=== PATIENT | female | born 1980 | race Caucasian/White ===

== ENCOUNTER 2017-08-19 12:24 | Outpatient (CLI) | payer BC ==
--- NOTE | 2017-08-19 13:08 | RAD ---
RADIOGRAPH CHEST 2 VIEWS: HISTORY: A 36-year-old female with dyspnea and chest pain. FINDINGS: There is no air space density, pulmonary edema, pleural effusion, pneumothorax, or cardiomegaly. IMPRESSION: No acute cardiopulmonary findings. jn [] POS: [facility]
== END 2017-08-19 12:25 | disposition home or self-care (01) ==
LOC: RAD 12:24
PROVIDERS: ATTEND Student in an Organized Health Care Education/Training Program
DX: R07.9 Chest pain, unspecified (principal); R06.02 Shortness of breath
CPT/HCPCS: 71020

== ENCOUNTER 2017-10-01 11:50 | Day surgery (SDC) | payer BC ==
[2017-10-01 12:45] VITALS: BMI 33.2
[2017-10-01 13:06] VITALS: BP 139/58; TEMP 97.4
[2017-10-01] MEDS: Lactated Ringer's 1,000 ML IV SCH ×2 (13:40→14:21)
== END 2017-10-01 15:55 | disposition home or self-care (01) ==
LOC: L&D/OP 11:50
PROVIDERS: ATTEND Student in an Organized Health Care Education/Training Program
DX: O42.92 Full-term premature rupture of membranes, unspecified as to length of time between rupture and onset of labor (principal); O09.513 Supervision of elderly primigravida, third trimester; O24.415 Gestational diabetes mellitus in pregnancy, controlled by oral hypoglycemic drugs; O99.283 Endocrine, nutritional and metabolic diseases complicating pregnancy, third trimester; E03.9 Hypothyroidism, unspecified; Z91.040 Latex allergy status; Z79.899 Other long term (current) drug therapy

== ENCOUNTER 2017-10-05 01:18 | Inpatient (IN) | payer BC ==
[2017-10-05 01:49] VITALS: BMI 33.2
[2017-10-05] MEDS ORDERED: Lidocaine 1% (PF) 30 ML VIAL SC PRN (02:05)
[2017-10-05] MEDS ORDERED: LR / Pitocin 40 units/1000 ml 1,000 ML IV PRN (02:05)
[2017-10-05] MEDS ORDERED: Ondansetron HCl/PF 4 MG/2 ML Vial IVP PRN ×5 (02:05→16:51)
[2017-10-05] MEDS ORDERED: Ibuprofen 800 MG TAB PO PRN (02:05)
[2017-10-05] MEDS ORDERED: HYDROcodone/Acetaminophen 5/325 mg Tablet PO PRN ×3 (02:05→16:51)
[2017-10-05] MEDS ORDERED: Lactated Ringer's 1,000 ML IV SCH (02:15)
[2017-10-05] MEDS: Lactated Ringer's 1,000 ML IV SCH ×3 (02:33→10:50)
[2017-10-05 02:36] LABS: Hemoglobin 11.3 g/dL (12.0-16.0); Mean Corpuscular HGB CONC 33.9 g/dL (32.0-36.0); Mean Corpuscular Hemoglobin 28.5 pg (27.0-31.0); Mean Corpuscular Volume 84.1 fl (81.0-99.0); Mean Platelet Volume 8.8 fL (7.4-10.4); Platelet Count 225 thou/uL (130-400); RBC Distribution Width 13.4 % (11.5-14.5); Red Blood Cell (RBC) Count 3.96 mill/uL (4.20-5.40); White Blood Cell (WBC) Count 11.7 thou/uL (4.8-10.8)
[2017-10-05] MEDS ORDERED: Naloxone HCl 0.4 mg/ml Vial IVP PRN ×4 (03:23→12:35)
[2017-10-05] MEDS ORDERED: Eucerin (Mineral Oil/Petrolatum,White) 30 gm Jar TOP PRN ×2 (03:23→12:35)
[2017-10-05] MEDS ORDERED: Lactated Ringer's 500 ML IV PRN (03:23)
[2017-10-05] MEDS ORDERED: Promethazine HCl 25 MG/ML VIAL IM PRN ×3 (03:23→16:51)
[2017-10-05] MEDS ORDERED: ePHEDrine/0.9% NaCl/PF SYRINGE 50 mg/10 ml SLOW IVP PRN (03:23)
[2017-10-05] MEDS ORDERED: Acetaminophen 325 MG TAB PO PRN (03:23)
[2017-10-05] MEDS ORDERED: diphenhydrAMINE 50 MG/ML VIAL IVP PRN ×2 (03:23→12:35)
[2017-10-05] MEDS ORDERED: Fentanyl 4mcg/Marcaine 0.1% Cassette 100 ML EPIDURAL SCH (03:30)
[2017-10-05] MEDS ORDERED: Communication Order-Pharmacy FS SCH ×2 (03:30→12:45)
[2017-10-05 03:37] LABS: HBSAg Index 0.24 S/CO (0-0.99); Hep B Surf Ag Non-Reactive S/CO (NonReactive)
[2017-10-05] MEDS: Bupivacaine 0.5% 20 ML, Fentanyl 400 MCG in Sodium Chloride 0.9% 72 ML EPIDURAL SCH ×2 (03:55→11:01)
[2017-10-05 04:46] LABS: Syphilis Antibody Nonreactive (Nonreactive); Syphilis Antibody Index 0.04 S/CO (<1.00 Non-Reactive)
[2017-10-05] MEDS ORDERED: LR 500 ML/Oxytocin 10 units 500 ML ONE (05:33)
[2017-10-05] MEDS ORDERED: LR 500 ML/Oxytocin 10 units 500 ML IVPB SCH (05:45)
--- NOTE | 2017-10-05 08:42 | PDOC.LDHP ---
Labor and Delivery H&P Chief complaint: loss of fluid ( since 0045, clear) HPI: 36yo at 37w0d with LOF copious clear at 0045, some painful contractions, no VB. Good FM Current gestational age (weeks): 37 Due date: 10/26/17 Dating criteria: last menstrual period Grav: 1 Para: 0 OB History Details: AMA s/p nl NT NIPT and MSAFP Current complications: gestational diabetes ( controlled on glyburide and metformin) Abnormal US findings: Yes (polyhydramnios, EFW > 99%ile) Past Medical History: hypothyroid, depression Current medications: pre- vitamins, other (levothyroxine 50mcg, zoloft 50mg daily, metformin 1000 bid) Previous surgical history: none Allergies/Adverse Reactions: Allergies Allergy/AdvReac Type Severity Reaction Status Date / Time latex Allergy Intermediate Hives Verified 10/01/17 12:42 Social history: none - Physical Exam Vital signs reviewed and normal: yes General: NAD Heart: RRR Lungs: CTAB Abdomen: gravid Extremeties: no edema FHT: category 2, late decelerations [place] contractions every: q3min - Vaginal Exam cm dilated: 7 Effacement: 75% Station: -1 (large cervical fibroid in front of babys head) - OB Labs Blood type: B RH: positive Antibody Screen: negative HIV: negative RPR: negative HEPSAg: negative 1 hour GCT: positive 3 hour GTT: positive GBS: negative Rubella: immune - Assessment L&D Assessment: term rupture in membranes - Plan Plan: admit to L&D, labor augmentation if indicated, informed consent obtained, anesthesia consult for pain management -: IUPC/FSE placed, pitocin turned off for recurrent lates at 0610, now with intermittent lates, resuscitate, check BG, if cat 1 x 30min restart pitocin, if Cat 2 and changing cervix will cont to labor pt, if not changing cervix and Cat 2 will be for PCS. Also disc fibroid may not be able to go behind baby's head and in that case would be considered outlet obstruction and would be for PCS. Will cont to eval.
[2017-10-05] MEDS ORDERED: CEFAZOLIN/Water 2 GM/20 ML SYRINGE ONE (12:10)
[2017-10-05] MEDS ORDERED: Bicitra 30 ML UDCUP ONE (12:10)
[2017-10-05] MEDS ORDERED: CEFAZOLIN/Water 2 GM/20 ML SYRINGE SLOW IVP SCH (12:15)
[2017-10-05] MEDS ORDERED: Bicitra 30 ML UDCUP PO SCH (12:15)
--- NOTE | 2017-10-05 12:16 | PDOC.LDPN ---
Labor & Delivery Progress Note - Subjective Subjective: comfortable - Objective Vital signs reviewed and normal: yes General: NAD Uterine fundus: non tender Dilation: 7 Effacement: 75% Station: -1 FHT: category 2, variable decelerations, late decelerations, absent or minimal variables [place] contractions every: q3-5min -: NRFHT, pitocin turned off at 4mu/min due to deep late decelerations, cont to have intermittent lates and variables. Cervical fibroid is now prolapsing down further and obstructing canal. Dispo for PCS for NRFHT and outlet obstruction. R/B disc with pt, pt understands and wishes to proceed.
[2017-10-05] MEDS ORDERED: Ketorolac Tromethamine 30 MG/ML VIAL ONE ×2 (12:26→16:18)
[2017-10-05] MEDS ORDERED: Oxytocin 10 UNITS/ML VIAL ONE ×2 (12:26→13:00)
[2017-10-05] MEDS ORDERED: Dexamethasone 4 mg/ml Vial ONE (12:26)
[2017-10-05] MEDS ORDERED: Morphine PF 1 MG/ML SYR ONE (12:26)
[2017-10-05] MEDS ORDERED: Ondansetron HCl/PF 4 MG/2 ML Vial ONE ×2 (12:26→16:18)
[2017-10-05] MEDS ORDERED: PHENYLEPHRINE-NS 100 MCG/ML 10 ML SYRINGE ONE ×2 (12:26→16:18)
[2017-10-05] MEDS ORDERED: HYDROmorphone 2 MG/ML VIAL SLOW IVP PRN (12:34)
[2017-10-05] MEDS ORDERED: Promethazine HCl 25 MG SUPP PR PRN (12:35)
[2017-10-05] MEDS ORDERED: Naloxone HCl 0.4 mg/ml Vial IV PRN (12:35)
[2017-10-05] MEDS ORDERED: Ketorolac Tromethamine 30 MG/ML VIAL IVP SCH (12:45)
--- NOTE | 2017-10-05 12:45 | PDOC.OPDEL ---
OB Operative/Delivery Note Delivery Dr/Surgeon: Tri Assist: Shyam Pre-Delivery Diagnosis: non-reassuring tracing, other (outlet obstruction with cervical fibroid) Procedure/Post Delivery Dx: primary low transverse CS Weeks gestation: 37 Anesthesia: epidural - Findings A Sex: female - Additional Findings/Plan Placenta delivered: spontaneous findings: low transverse hysterotomy without extension, normal tubes, normal ovaries Post delivery plan: routine recovery
[2017-10-05] MEDS ORDERED: Meperidine HCl/PF 25 MG/ML VIAL ONE ×2 (14:16→14:51)
[2017-10-05] MEDS: Meperidine HCl/PF 25 MG/ML VIAL SLOW IVP PRN ×2 (14:17→14:52)
--- NOTE | 2017-10-05 15:42 | ADD-OP ---
ADDENDUM: DATE OF SERVICE: 10/05/2017 I was present and scrubbed to assist the uncomplicated primary with Dr. Pina Bartlett. Please see her full note for details. MTDD
[2017-10-05] MEDS ORDERED: Morphine 10 MG/ML VIAL ONE (15:48)
[2017-10-05] MEDS ORDERED: Morphine 2 MG/ML SYRINGE ONE ×2 (15:57→15:58)
[2017-10-05] MEDS ORDERED: Dexamethasone 20 MG/5 ML VIAL ONE (16:18)
[2017-10-05] MEDS ORDERED: Adacel (T-DAP) 0.5 ML VIAL IM ONE (16:51)
[2017-10-05] MEDS ORDERED: diphenhydrAMINE 25 MG CAP PO PRN (16:51)
[2017-10-05] MEDS ORDERED: Bisacodyl 10 MG SUPP PR PRN (16:51)
[2017-10-05] MEDS: Ibuprofen 800 MG TAB PO SCH ×3 (17:20→20:37)
[2017-10-05] MEDS: Ferrous Sulfate 325 MG TAB PO SCH (20:36)
[2017-10-05] MEDS: Docusate Calcium (SURFAK) 240 MG CAP PO SCH (20:36)
[2017-10-05] MEDS: Ketorolac Tromethamine 30 MG/ML VIAL IVP PRN (20:43)
[2017-10-06] MEDS ORDERED: HYDROcodone/Acetaminophen 5/325 mg Tablet PO PRN (00:45)
[2017-10-06] MEDS: Lanolin Ointment 7 GM TUBE TOP PRN ×2 (01:21→08:58)
[2017-10-06] MEDS: Lactated Ringer's 1,000 ML IV SCH (01:21)
[2017-10-06] MEDS ORDERED: Levothyroxine 150 MCG TAB PO SCH (06:00)
[2017-10-06 06:09] LABS: Hemoglobin 7.8 g/dL (12.0-16.0); Mean Corpuscular HGB CONC 33.1 g/dL (32.0-36.0); Mean Corpuscular Hemoglobin 28.3 pg (27.0-31.0); Mean Corpuscular Volume 85.5 fl (81.0-99.0); Mean Platelet Volume 8.3 fL (7.4-10.4); Platelet Count 192 thou/uL (130-400); RBC Distribution Width 13.5 % (11.5-14.5); Red Blood Cell (RBC) Count 2.76 mill/uL (4.20-5.40); White Blood Cell (WBC) Count 15.8 thou/uL (4.8-10.8)
[2017-10-06] MEDS: Ketorolac Tromethamine 30 MG/ML VIAL IVP PRN (06:23)
--- NOTE | 2017-10-06 06:30 | PDOC.PP ---
Post Progress Note Post Day #: POD #! Subjective: Resting comfortably. No c/o. PO intake tolerated: yes Flatus: no Ambulation: no Vital Signs (12 hours) Temp Pulse Resp BP 10/06/17 04:37 98.0 F 95 16 100/65 10/05/17 23:53 97.4 F L 94 16 10/05/17 19:45 97.4 F L 94 16 100/49 L Weight Weight 79.832 kg - Physical Examination Respiratory: non-labored breathing Abdominal: no distention Extremities: negative homans (B) Skin: CS incision dry & intact Result Diagrams: 10/06/17 05:55 Additional Labs: Post Labs Blood Type B POSITIVE 10/05/17 02:25 Hep Bs Antigen Non-Reactive S/CO (NonReactive) 10/05/17 02:25 - Assessment/Plan Stable, doing well s/p 1* C/s. Advance diet. D/C arora. Ambulate with assistance.
[2017-10-06] MEDS: Levothyroxine Sodium 50 MCG TAB PO SCH (07:03)
[2017-10-06] MEDS: Prenatal Vitamin 1 TAB PO SCH (08:55)
[2017-10-06] MEDS: Docusate Calcium (SURFAK) 240 MG CAP PO SCH ×2 (08:55→20:47)
[2017-10-06] MEDS: Simethicone Chewable 80 MG TAB PO PRN ×3 (08:56→20:46)
[2017-10-06] MEDS: Ferrous Sulfate 325 MG TAB PO SCH ×2 (08:56→20:47)
[2017-10-06] MEDS: HYDROcodone/Acetaminophen 5/325 mg Tablet PO PRN ×2 (11:45→20:46)
[2017-10-06] MEDS: Ibuprofen 800 MG TAB PO SCH ×2 (13:39→20:46)
[2017-10-07] MEDS: HYDROcodone/Acetaminophen 5/325 mg Tablet PO PRN ×3 (04:32→22:01)
[2017-10-07] MEDS: Ibuprofen 800 MG TAB PO SCH ×3 (06:16→21:31)
[2017-10-07] MEDS: Levothyroxine Sodium 50 MCG TAB PO SCH (06:16)
[2017-10-07] MEDS: Simethicone Chewable 80 MG TAB PO PRN ×2 (06:17→17:06)
[2017-10-07 07:55] LABS: Hemoglobin 7.1 g/dL (12.0-16.0); Mean Corpuscular HGB CONC 34.6 g/dL (32.0-36.0); Mean Corpuscular Hemoglobin 29.9 pg (27.0-31.0); Mean Corpuscular Volume 86.4 fl (81.0-99.0); Mean Platelet Volume 8.2 fL (7.4-10.4); Platelet Count 245 thou/uL (130-400); RBC Distribution Width 13.6 % (11.5-14.5); Red Blood Cell (RBC) Count 2.36 mill/uL (4.20-5.40); White Blood Cell (WBC) Count 13.2 thou/uL (4.8-10.8)
--- NOTE | 2017-10-07 08:03 | PRG ---
DATE OF SERVICE: 10/07/2017 PRIMARY OB: Dr. Pina Bartlett HISTORY OF PRESENT ILLNESS: The patient is a 36-year-old, now postoperative day #2, status post a pr imary for nonreassuring heart tones. She reports today that she is having good pain control. She is tolerating p.o., voiding on her own. She denies any significant chest pain, shortne ss of breath. She has experienced 2 episodes of some mild lightheadedness yesterday that she said re solved with her iron medication. PHYSICAL EXAMINATION: VITAL SIGNS: Blood pressure is 103/59, heart rate of 104, temperature 97.8, respiratory rate of 18. GENERAL: She appears to be in no acute distress. She is alert and oriented, and cooperative and ple asant to interact with. HEENT: Normocephalic, atraumatic. ABDOMEN: Fundus is firm, appropriately tender. Incision is clean, dry, and intact with dorothy. EXTREMITIES: She has significant bilateral swelling in her lower extremities and symmetrical. Her post-delivery hemoglobin is 7.8, hematocrit 23.6. ASSESSMENT AND PLAN: The patient is a 36-year-old postop day 2 status post a primary for n onreassuring heart tones with some intermittent lightheadedness and dizziness. The patient has had a significant drop from 11.3 to 7.8 in her hemoglobin. I have repeated it this morning and have given the patient elder counselor if she experiences significant dizziness, lightheadedness, chest pain, nidhi rtness of breath to let us know. Anticipate patient discharge tomorrow or the next day.
[2017-10-07] MEDS: Prenatal Vitamin 1 TAB PO SCH (08:30)
[2017-10-07] MEDS: Docusate Calcium (SURFAK) 240 MG CAP PO SCH ×2 (08:30→21:31)
[2017-10-07] MEDS: Ferrous Sulfate 325 MG TAB PO SCH ×2 (08:30→21:31)
--- NOTE | 2017-10-07 09:52 | OP ---
DATE OF OPERATION: 10/05/2017 PREOPERATIVE DIAGNOSES: 1. Intrauterine at 37 weeks and 0 days. 2. Spontaneous onset of labor. 3. Outlet obstruction due to cervical fibroid. 4. Nonreassuring heart tones. POSTOPERATIVE DIAGNOSES: 1. Intrauterine at 37 weeks and 0 days. 2. Spontaneous onset of labor. 3. Outlet obstruction due to cervical fibroid. 4. Nonreassuring heart tones. 5. Uterine fibroids. ANESTHESIA: Epidural. ATTENDING SURGEON: Pina Bartlett M.D. SIDE FRAMER: Lotus Howe M.D. ESTIMATED BLOOD LOSS: 700 mL. INTRAVENOUS FLUIDS: One liter crystalloid. URINE OUTPUT: 100 mL of clear urine. COMPLICATIONS: None. PATHOLOGY: None. DRAINS: Echavarria catheter. FINDINGS: A female infant in cephalic presentation, clear amniotic fluid, Apgars of 3, 5 and 7, weig juan m 7 pounds 15 ounces. Uterus with multiple small fibroids, largest was a subserosal anteriorly ap proximately 3 cm. There was a large cervical fibroid present that was swollen and edematous prolapsi ng into the vaginal canal obstructing labor and this measured approximately 7-8 cm. Fallopian tubes and ovaries were normal bilaterally. OPERATIVE TECHNIQUE: The patient was taken to the operating room where epidural anesthesia was found to be adequate. The patient was prepped and draped in a sterile fashion in the dorsal supine positi on with a leftward tilt. After ensuring adequacy of anesthesia, a Pfannenstiel skin incision was mad e and carried down to the underlying subcutaneous tissue with the knife. The fascia was nicked in th e midline with the knife and carried laterally with the Mayos. The superior aspect of the fascia was tented with 2 Kochers and dissected off the rectus bluntly. Perforators were cauterized for hemosta sis, inferior aspect of the fascia was tented with 2 Kochers and dissected off the rectus down to the pubic symphysis. Rectus were bluntly divided in the midline. Peritoneum was bluntly entered into a nd manually retracted. The Mason O retractor was placed and bladder flap was created with the Sundar abad. The lower uterine segment was incised in the transverse fashion and extended with the Cortez m aneuver. The infant's head was brought to the hysterotomy and delivered atraumatically followed by t body. Infant delayed cord clamping was performed. The 's cord was clamped and charleen d to awaiting sangeeta team. Cord blood was obtained and placenta was allowed to spontaneously deliver wi th fundal massage. The uterus was then unable to be exteriorized and was cleared of all clots and de bris inside the abdomen. The hysterotomy was repaired with a #1 Monocryl in a running locking fashio n. Hemostasis was noted. Several bladder pillars were cauterized and one had continued oozing there fore a single [id number] was placed around it of 2-0 chromic and hemostasis was noted to be exce llent. Irrigation of the pelvis was performed and again noting hemostasis. The peritoneum was then placed over the uterus and the rectus muscles were examined and noted to be hemostatic. The fascia w as reapproximated with 0 PDS with excellent reapproximation. The subcutaneous tissue was irrigated a nd cauterized of any bleeders and reapproximated with a 2-0 plain gut in a running fashion and the sk in was closed with 4-0 Monocryl in a subcuticular fashion and Dermabond was applied as well as a pres sure dressing. The patient tolerated procedure well. Sponge, lap, and needle counts were correct x2 . The patient was taken to recovery in stable condition.
--- NOTE | 2017-10-07 11:58 | PDOC.EVN ---
Event Note - Event Note Event Note: body recall instructor OBGYN note: I just followed up on a repeat HCT check from the last covering OBGYN. The Hct is 20.4 down from 23. No sxs of anemia. I will recheck at 0200 tomorrow AM
[2017-10-07] MEDS: metFORMIN 500 MG TAB PO SCH (17:06)
[2017-10-08] MEDS: Ibuprofen 800 MG TAB PO SCH ×2 (05:21→14:52)
[2017-10-08] MEDS: Levothyroxine Sodium 50 MCG TAB PO SCH (05:21)
[2017-10-08 05:28] LABS: Hemoglobin 7.3 g/dL (12.0-16.0)
--- NOTE | 2017-10-08 06:04 | PDOC.EVN ---
Event Note - Event Note Event Note: DISCHARGE NOTE Admit date: 10/05/17 Discharge Date: 10/08/17 Procedure: Primary CS due to NRFHTS and lower uterine fibroid/cervical. CS by Dr Bartlett. Patient's postop HCT dropped to 23 anf then stabilized at 21.8 on day of discharge. She was asymptomatic and non-tachycardic. Abdomen was soft and NT. Incision C/D/I. Baby to have repeat bili level checked on day of discharge ( under bili lights). Incision sutured closed. Patient to F/U with Dr bartlett in 2 weeks. Lydia cabellon.
--- NOTE | 2017-10-08 06:10 | PDOC.PP ---
Post Progress Note Post Day #: 3 Subjective: Doing well, no SOB, ambulating and honey po. PO intake tolerated: yes Flatus: yes Vital Signs (12 hours) Temp Pulse Resp BP 10/07/17 19:50 98.1 F 83 16 96/56 L Weight Weight 176 lb - Physical Examination General: NAD Cardiovascular: no m/r/g Respiratory: clear to auscultation bilaterally Abdominal: + bowel sounds Extremities: negative homans (B) Skin: CS incision dry & intact (dorothy in place) Neurological: no gross focal deficits Result Diagrams: 10/08/17 04:50 Additional Labs: Post Labs Blood Type B POSITIVE 10/05/17 02:25 Hep Bs Antigen Non-Reactive S/CO (NonReactive) 10/05/17 02:25 (1) Delivered by section Code(s): O82 - ENCOUNTER FOR DELIVERY WITHOUT INDICATION Status: Acute - Assessment/Plan Patient seen and examined. Dorothy in polace. HCT stable at 21.8 this AM. baby to have bili check this AM. OK for discharge today and B&B if needed for baby stay. Motrin prn.
[2017-10-08 07:43] VITALS: BP 109/56; TEMP 98.2
[2017-10-08] MEDS: Prenatal Vitamin 1 TAB PO SCH (08:24)
[2017-10-08] MEDS: Docusate Calcium (SURFAK) 240 MG CAP PO SCH (08:26)
[2017-10-08] MEDS: metFORMIN 500 MG TAB PO SCH (08:26)
[2017-10-08] MEDS: Ferrous Sulfate 325 MG TAB PO SCH (08:27)
[2017-10-08] MEDS: HYDROcodone/Acetaminophen 5/325 mg Tablet PO PRN (14:52)
== END 2017-10-08 15:35 | disposition home or self-care (01) | DRG 766 ==
LOC: L&D/OP 01:18 → L&D 02:21 → 3SW 17:23
PROVIDERS: ADMIT Student in an Organized Health Care Education/Training Program; ATTEND Student in an Organized Health Care Education/Training Program
PROC: 10D00Z1 Extraction of Products of Conception, Low, Open Approach (ICD-10-PCS; principal; 2017-10-05)
DX: O65.3 Obstructed labor due to pelvic outlet and mid-cavity contraction (principal); E66.9 Obesity, unspecified; D25.9 Leiomyoma of uterus, unspecified; Z37.0 Single live birth; O65.5 Obstructed labor due to abnormality of maternal pelvic organs; Z3A.37 37 weeks gestation of pregnancy; O76 Abnormality in fetal heart rate and rhythm complicating labor and delivery; O99.283 Endocrine, nutritional and metabolic diseases complicating pregnancy, third trimester; E03.9 Hypothyroidism, unspecified; O99.344 Other mental disorders complicating childbirth
CPT/HCPCS: 36415; 36416; 51702; 85014; 85018; 85027; 86780; 86850; 86900; 86901; 87340; 90715; 99283; J1100; J1200; J1885; J2175; J2270; J2274; J2405; J2590; J3010; J3490; J7050; J7120

== ENCOUNTER 2018-04-28 09:14 | Outpatient (CLI) | payer BC ==
--- NOTE | 2018-04-28 12:09 | MRI ---
MRI RIGHT WRIST WITHOUT CONTRAST: Date: 04/28/18 INDICATION: History of right wrist pain for many months. Concern for possible scapholunate injury. No known injur y reported. TECHNIQUE: Multiplanar, multisequence MR images were obtained of the right wrist without contrast. No comparisons are available. FINDINGS: The scapholunate and lunotriquetral ligaments are intact. The visualized extrinsic ligaments appear i ntact. Carpal alignment appears within normal limits. No definite acute osseous abnormality is eviden t. TFC intact. Radioulnar ligaments appear intact. ECU appears intact. FCU and FCR tendons appear int act. Carpal tunnel contents appear within normal limits. Remaining extensor tendons appear within nor mal limits. Small amount of fluid seen within the tendon sheaths of the ECRB and ECRL tendons. This i s seen at the level of the proximal carpal row. IMPRESSION: 1. Scapholunate ligament appears intact. 2. Mild fluid in the tendon sheath of second dorsal compartment may reflect mild tenosynovitis. POS: [facility]
== END 2018-04-28 09:15 | disposition home or self-care (01) ==
LOC: SCSMRI 09:14
PROVIDERS: ATTEND Orthopaedic Surgery Hand Surgery
DX: S63.8X1A Sprain of other part of right wrist and hand, initial encounter (principal); M25.331 Other instability, right wrist

== ENCOUNTER 2018-08-02 05:41 | Day surgery (SDC) | payer BC ==
[2018-08-01 15:09] VITALS: BMI 33.2
[2018-08-02] MEDS ORDERED: Fentanyl 100 MCG/2 ML VIAL ONE ×2 (06:25)
[2018-08-02] MEDS ORDERED: CEFAZOLIN 2 GM/50 ML BAG ONE (06:27)
[2018-08-02 06:30] LABS: #Basophils 0.1 thou/uL (0.0-0.2); #Eosinphils 0.4 thou/uL (0.0-0.7); #Monocytes 0.6 thou/uL (0.11-0.59); #Neutrophils 4.1 thou/uL (1.40-6.50); %Eosinophils 4.8 % (0.0-10.0); %Lymphocytes 43.5 % (21.0-51.0); %Monocytes 6.4 % (0.0-10.0); %Neutrophils 44.3 % (42.0-75.0); Hemoglobin 13.3 g/dL (12.0-16.0); Mean Corpuscular HGB CONC 33.4 g/dL (32.0-36.0); Mean Corpuscular Hemoglobin 27.7 pg (27.0-31.0); Mean Platelet Volume 7.1 fL (7.4-10.4); Platelet Count 290 thou/uL (130-400); RBC Distribution Width 10.8 % (11.5-14.5); Red Blood Cell (RBC) Count 4.78 mill/uL (4.20-5.40); White Blood Cell (WBC) Count 9.1 thou/uL (4.8-10.8)
[2018-08-02 06:36] LABS: BHCG - Serum Negative (NEGATIVE); Pregs Control Background? CLEAR/WHITE (CLR/WHITE); Pregs Control Bar Appear? YES (CONTROL BAR)
[2018-08-02] MEDS ORDERED: Bacitracin Zinc Ointment 30 gm TUBE ONE (06:52)
[2018-08-02] MEDS ORDERED: Bupivacaine PF 0.5% 30 ML VIAL ONE (06:52)
[2018-08-02] MEDS ORDERED: Betamet Acet/Betamet Na Ph 30 MG/5 ML VIAL ONE (07:17)
[2018-08-02] MEDS ORDERED: Sodium Chloride 0.9% 10 ML ONE (07:39)
[2018-08-02] MEDS ORDERED: Ketorolac Tromethamine 30 MG/ML VIAL ONE ×2 (08:50→16:25)
[2018-08-02] MEDS ORDERED: HYDROcodone/Acetaminophen 5/325 mg Tablet ONE (10:05)
[2018-08-02] MEDS ORDERED: Dexamethasone 20 MG/5 ML VIAL ONE (16:25)
[2018-08-02] MEDS ORDERED: Ondansetron PF 4 MG/2 ML Vial ONE (16:25)
[2018-08-02] MEDS ORDERED: PROPOFOL 200 MG/20 ML VIAL ONE (16:25)
[2018-08-02] MEDS ORDERED: Lidocaine 1% PF 5 ML VIAL ONE (16:25)
[2018-08-02] MEDS ORDERED: ePHEDrine/0.9% NaCl/PF SYRINGE 50 mg/10 ml ONE (16:25)
--- NOTE | 2018-08-05 07:26 | OP ---
DATE OF PROCEDURE: 08/02/2018 PREOPERATIVE DIAGNOSES: 1. Left first dorsal compartment tenosynovitis. 2. Left second dorsal compartment tenosynovitis. FINDINGS: 1. Left first dorsal compartment tenosynovitis and left second dorsal compartment tenosynovitis with four sleeves of tendons, abductor pollicis longus x3 and extensor pollicis brevis, all in the same compartment with marked tenosynovitis between them at the first dorsal compartment. 2. Tight tenosynovium underneath the first dorsal compartment at the intersection site over the second dorsal compartment with visualization today. PROCEDURES PERFORMED: 1. First dorsal compartment release, left. 2. Second dorsal compartment release, left wrist. 3. Left wrist radical tenosynovectomy, abductor pollicis longus. 4. Celestone injection. 5. Application of splint. SPECIMENS REMOVED: First dorsal compartment tenosynovitis with tenosynovectomy sent to the lab. ESTIMATED BLOOD LOSS: 10 mL. TOURNIQUET TIME: 10 minutes. INJECTABLES: 20 mL of 0.5% Marcaine with epinephrine. DESCRIPTION OF PROCEDURE: After successful general LMA technique by SPORTS DOCTOR of [place] anesthesia, the limb was prepped and draped. Time-out was done appropriately. We then outlined two zig-zag incisions over each of the dorsal compartments and injected this area with 10 mL of 0.5% Marcaine each. We exsanguinated the limb and inflated the tourniquet to 250 mmHg pressure. The first dorsal compartment was approached first as it was very thickened. We made an incision and carried through skin and subcutaneous tissue and identified all branches of superficial radial nerve and protected them throughout the entire procedure. We released the very thick first dorsal compartment and there was marked tenosynovitis proximal, distal, and underneath this. We performed a radical extensor tenosynovectomy, and sent a sample of this to the lab for evaluation, and then noticed that there were 4 sleeves of the tendon with no separate extensor pollicis brevis compartment. Once this tenosynovectomy was done, we resected the dorsal half of the extensor, approximately 2 mm 4 x 4 mm palmar bridge to prevent subluxation. We placed 2.5 mL of Celestone here. We then approached the proximal move making the same length zig-zag incision and carried through skin and subcutaneous tissue, visualized palmarly the distal portion of the superficial radial nerve and protected them. We then released a small fascia band over the first dorsal compartment at the intersection site, and the first and second, and underneath it there was mild tenosynovial swelling, resected this and then released the tendon sheath. We then placed 2.5 mL of Celestone here, we deflated the tourniquet, obtained hemostasis, and closed these wounds individually with 4-0 nylon. Bulky dressing was applied with a short arm thumb spica splint, and the patient left the operating room without evidence of anesthetic complications. Job ID: [id number]
== END 2018-08-02 10:46 | disposition home or self-care (01) ==
LOC: SDC 05:41
PROVIDERS: ATTEND Orthopaedic Surgery Hand Surgery
PROC: 0LB60ZZ Excision of Left Lower Arm and Wrist Tendon, Open Approach (ICD-10-PCS; principal; 2018-08-02)
PROC: 0LN60ZZ Release Left Lower Arm and Wrist Tendon, Open Approach (ICD-10-PCS; principal; 2018-08-02)
DX: M65.88 Other synovitis and tenosynovitis, other site (principal); E03.9 Hypothyroidism, unspecified; Z79.899 Other long term (current) drug therapy; Z91.041 Radiographic dye allergy status
CPT/HCPCS: 36415; 84703; 85025; 88305; 96372; J0131; J0702; J1100; J1885; J2001; J2405; J2704; J3010; J3490; S0020

== ENCOUNTER 2019-07-25 07:54 | Outpatient (CLI) | payer BC ==
--- NOTE | 2019-07-25 09:54 | CT ---
CT ABDOMEN AND PELVIS WITH AND WITHOUT IV CONTRAST 07/25/2019 CLINICAL INFORMATION: Gross hematuria. UTI. History of kidney stones COMPARISON: 02/15/2015 Technique: Multiple contiguous axial CT images are obtained through the abdomen and pelvis with IV contrast. Cor onal reformatted images are provided. FINDINGS: Lower Chest: Dependent bibasilar atelectasis is seen. Vessels: Abdominal aorta is normal in caliber without evidence of an aortic dissection. Abdomen: Portal vein:Patent Gallbladder: Within normal limits for CT imaging. Liver: Approximately 2 cm hypodense lesion seen in the posterior and lateral aspect of the medial seg ment left hepatic lobe which cannot be characterized as a simple cyst. Spleen: within normal limits. Pancreas: within normal limits. Adrenals: within normal limits. Kidneys: Subcentimeter too small to characterize hypodense lesions are seen in each kidney. There is a larger fluid attenuation cystic lesion measuring 1.3 cm in the midportion left kidney compatible with a cyst. A nonobstructing 3 mm calculus is seen in the midportion left kidney. No additional victor m l calculi are seen. No ureteral calculus is visualized, and there is no hydronephrosis seen bilaterally. No enhancing renal mass is identified. A subcentimeter focus of enhancement is seen on d elayed phase of imaging which corresponds to a subcentimeter low-density focus in the superior pole left kidney on the portal venous phase of imaging. This may represent a small calyceal diverticulum. Bowel: Normal caliber. Appendix: The appendix is visualized and normal in caliber. Peritoneum: No ascites or free air; no fluid collection. Mesentery and Retroperitoneum: No enlarged mesenteric or retroperitoneal lymph nodes. Abdominal Wall: within normal limits. Pelvis: Reproductive Organs: There is a large mildly enhancing mass seen in the central pelvis which appears to be centered in the region of the cervix. This mass measures 7.8 cm craniocaudal x8.2 cm transverse x7.9 cm AP. Neoplastic process is diagnosis of exclusion. A subtle subcentimeter low-density structure is seen within the posterior body of the uterus with sli ght heterogeneity and nodularity of the body and uterine fundus, and findings may be related to uterine fibroids. Adnexal structures have a grossly normal CT appearance. Pelvis within normal limits. Bladder: Incompletely distended. There is mass effect on the urinary bladder secondary to the mass ce ntered in the region of the cervix. Bones: No suspicious lytic or sclerotic osseous lesions are identified. IMPRESSION: 1. Large mass centered in the cervix. Neoplastic process is diagnosis of exclusion. An OB\Head Charrer consult ation is recommended for further evaluation. 2. Hypodense lesion within the posterior aspect medial segment left hepatic lobe which cannot be charles acterized as a cyst. Follow-up MRI examination may be helpful for further characterization. 3. Nonobstructing left renal calculus. 4. Left renal cyst with small subcentimeter hypodense lesion superior pole left kidney which fills wi th contrast on delayed phase of imaging and may represent a subcentimeter calyceal diverticulum. 5. No ureteral calculus is seen, and there is no hydronephrosis present. 6. Probable fibroid uterus. Pelvic ultrasound may be helpful for further evaluation. 7. Above findings discussed with Dr. Musa Miller's nurse on 07/25/2019 at 0951 hours.
== END 2019-07-25 07:55 | disposition home or self-care (01) ==
LOC: SCSCT 07:54
PROVIDERS: ATTEND Family Medicine
DX: R31.0 Gross hematuria (principal); N88.8 Other specified noninflammatory disorders of cervix uteri; N20.0 Calculus of kidney; K76.89 Other specified diseases of liver; N28.1 Cyst of kidney, acquired; N28.9 Disorder of kidney and ureter, unspecified
CPT/HCPCS: 74178

== ENCOUNTER 2019-08-17 08:37 | Outpatient (CLI) | payer BC, OTHER ==
--- NOTE | 2019-08-17 09:16 | MMO ---
Bilateral MAMMO Bilat Diag [facility]DI+CAROLINE. CLINICAL HISTORY: Patient is 38 years old and is seen for diagnostic exam. VIEWS: The views performed were: bilateral craniocaudal with tomosynthesis; bilateral mediolateral oblique with tomosynthesis; and bilateral mediolateral with tomosynthesis. FILMS COMPARED: The present examination has been compared to a prior imaging study performed at [facility] on 08/17/2019. This study has been interpreted with the assistance of computer-aided detection. MAMMOGRAM FINDINGS: There are scattered fibroglandular densities. There are no suspicious masses, suspicious calcifications, or areas of architectural distortion. There are no mammographic or sonographic abnormalities in the area of palpable concern. The patient is referred back to her clinician. Negative imaging findings should not preclude biopsy if clinical findings are suspicious. IMPRESSION: THERE ARE NO MAMMOGRAPHIC OR SONOGRAPHIC ABNORMALITIES IN THE AREA OF PALPABLE CONCERN. THE PATIENT IS REFERRED BACK TO HER CLINICIAN. NEGATIVE IMAGING FINDINGS SHOULD NOT PRECLUDE BIOPSY IF CLINICAL FINDINGS ARE SUSPICIOUS. THE RESULTS OF THIS EXAM WERE SENT TO THE PATIENT. ACR BI-RADS Category 1 - Negative MAMMOGRAPHY NOTE: 1. A negative mammogram report should not delay a biopsy if a dominant of clinically suspicious mass is present. 2. Approximately 10% to 15% of breast cancers are not detected by mammography. 3. Adenosis and dense breasts may obscure an underlying neoplasm. Reported by: CHARANJIT BAILEY MD Electonically Signed: [id number]
--- NOTE | 2019-08-17 09:51 | ULT ---
LIMITED LEFT BREAST ULTRASOUND: Date: 08/17/19 PROVIDED CLINICAL HISTORY: Left breast palpable abnormality. FINDINGS: Limited sonographic interrogation of the left breast was performed at the 2 o'clock position in the r egion of palpable concern. The sonographic appearance of the breast tissue in this region is normal. IMPRESSION: BI-RADS Category 1 - Negative. Negative imaging findings should not preclude further evaluation of a clinically suspicious finding. The patient is referred back to her clinician. POS: [facility]
== END 2019-08-17 08:38 | disposition home or self-care (01) ==
LOC: BICMAMMO 08:37
PROVIDERS: ATTEND Student in an Organized Health Care Education/Training Program
DX: N63.20 Unspecified lump in the left breast, unspecified quadrant (principal)
CPT/HCPCS: 77066; G0279

== ENCOUNTER 2019-08-17 09:57 | Outpatient (CLI) | payer OTHER ==
[2019-08-17 10:29] LABS: Estimated GFR-MDRD - POC Greater than 90
--- NOTE | 2019-08-17 12:09 | MRI ---
MRI PELVIS WITH AND WITHOUT IV CONTRAST: INDICATION: Uterine mass with pelvic pain. COMPARISON: CT the abdomen and pelvis dated 07/25/2019 and 02/15/2015. TECHNIQUE: Multiplanar multisequence MR images were obtained of the pelvis with and without contrast utilizing 60 mL of MultiHance. FINDINGS: Corresponding to the mass-like abnormality seen within the central pelvis on the comparison CT evalua tion dated July 25, 2019, is a heterogeneous but predominantly hypointense T2, isointense T1, enhancing mass centered within the posterior aspect of the lower uterine body, subjacent to the junct ional zone. The mass measures 8.5 x 7.5 x 8.1 cm in its greatest craniocaudad, AP and mediolateral dimensions respectively. The mass lesion causes mass effect on the lower uterine segment as well as t he cervix and vagina. There is also mass effect on the rectal vault. This lesion does appear to have continuation with the overlying intramural space of the posterior uterine body as well as the s erosal layer of the posterior uterine body. There is an additional small mass seen within the intramural space of the right posterior uterine body measuring 1.3 cm. There is a 2.2 cm follicular c yst involving the left ovary. The right ovary is normal-appearing. No free fluid is evident. No enlarged lymph nodes are demonstrated. Visualized bladder is normal-appearing. Bone marrow signal int ensity appears within normal limits. IMPRESSION: 1. Large submucosal lower posterior uterine body fibroid inducing localized mass effect on the cervix , upper vagina and rectum. 2. Small 1.2 cm fibroid involving the posterior right uterine body. 3. 2.2 cm left ovarian follicular cyst. Transcribed Date/Time: 08/17/2019 12:21 PM
== END 2019-08-17 09:58 | disposition home or self-care (01) ==
LOC: BICMRI 09:57
PROVIDERS: ATTEND Student in an Organized Health Care Education/Training Program
DX: D25.9 Leiomyoma of uterus, unspecified (principal); N83.02 Follicular cyst of left ovary
CPT/HCPCS: 72197; 82565

== ENCOUNTER 2019-09-14 19:00 | Outpatient (CLI) | payer BC | END 2019-09-14 19:01 | disposition home or self-care (01) | LOC: SLEEPLAB 19:00 | PROVIDERS: ATTEND Family Medicine | DX: G47.33 Obstructive sleep apnea (adult) (pediatric) (principal); R53.83 Other fatigue; R51 Headache; G31.84 Mild cognitive impairment of uncertain or unknown etiology; E66.9 Obesity, unspecified; R06.83 Snoring; F32.9 Major depressive disorder, single episode, unspecified; E11.9 Type 2 diabetes mellitus without complications | CPT/HCPCS: 95806 ==

== ENCOUNTER 2019-10-02 07:08 | Day surgery (SDC) | payer BC ==
[2019-09-28 14:42] VITALS: BMI 34.4
[2019-09-28 15:15] LABS: Hemoglobin 12.2 g/dL (12.0-16.0); Mean Corpuscular HGB CONC 34.2 g/dL (32.0-36.0); Mean Corpuscular Hemoglobin 27.3 pg (27.0-31.0); Mean Corpuscular Volume 79.8 fL (78.0-98.0); Mean Platelet Volume 7.4 fL (7.4-10.4); Platelet Count 318 thou/uL (130-400); Red Blood Cell (RBC) Count 4.46 mill/uL (4.20-5.40); White Blood Cell (WBC) Count 11.8 thou/uL (4.8-10.8)
[2019-09-28 15:32] LABS: Anion Gap 12 mmol/L (10-20); BUN (Urea Nitrogen) 6 mg/dL (7.0-18.7); Calc. Creatinine Clearance 0 mL/min (70-130); Calcium 9.2 mg/dL (7.8-10.44); Carbon Dioxide 24 mmol/L (22-29); Chloride 103 mmol/L (98-107); Estimated GFR-MDRD 81; Glucose 202 mg/dL (70-105); Potassium 4.2 mmol/L (3.5-5.1); Sodium 135 mmol/L (136-145)
[2019-10-02] MEDS ORDERED: CeleCOXIB 100 MG CAP ONE (07:36)
[2019-10-02] MEDS ORDERED: Famotidine/PF 20 mg/2ml Vial ONE (07:36)
[2019-10-02] MEDS ORDERED: Gabapentin 300 MG CAP ONE (07:36)
[2019-10-02] MEDS ORDERED: Sodium Chloride 0.9% 100 ML ONE (07:38)
[2019-10-02] MEDS ORDERED: Tranexamic Acid 1,000 MG/10 ML VIAL ONE (07:38)
[2019-10-02] MEDS ORDERED: Misoprostol 200 MCG TAB PO SCH (08:00)
[2019-10-02] MEDS ORDERED: Fentanyl 100 MCG/2 ML VIAL ONE ×4 (09:47→13:45)
[2019-10-02] MEDS ORDERED: Lidocaine 1% w/Epinephrine 1:100K 20 ML VIAL ONE (09:47)
[2019-10-02] MEDS ORDERED: Bupivacaine PF 0.5% 30 ML VIAL ONE (09:47)
[2019-10-02] MEDS ORDERED: Midazolam HCl 2 mg/2 ml Vial ONE (10:07)
[2019-10-02] MEDS ORDERED: Calcium Chloride 1 GM/10 ML Abboject SYRINGE ONE (10:54)
[2019-10-02] MEDS ORDERED: PHENYLEPHRINE-NS 100 MCG/ML 10 ML SYRINGE ONE (10:54)
[2019-10-02] MEDS ORDERED: ePHEDrine/0.9% NaCl/PF SYRINGE 50 mg/10 ml ONE (10:54)
[2019-10-02] MEDS ORDERED: PROPOFOL 200 MG/20 ML VIAL ONE (10:54)
[2019-10-02] MEDS ORDERED: Glycopyrrolate 0.2 MG/ML 5 ML SYRINGE ONE (10:54)
[2019-10-02] MEDS ORDERED: Rocuronium Bromide 10 MG/ML (10ML VIAL) ONE (10:54)
[2019-10-02] MEDS ORDERED: Lidocaine 1% PF 5 ML VIAL ONE (10:54)
[2019-10-02] MEDS ORDERED: Misoprostol 200 MCG TAB ONE (11:30)
[2019-10-02] MEDS ORDERED: Dextrose 50% Abboject 50 ML SYRINGE SLOW IVP PRN (12:34)
[2019-10-02] MEDS ORDERED: Ondansetron PF 4 MG/2 ML Vial IVP PRN (12:34)
[2019-10-02] MEDS ORDERED: Dextrose 5% in Water 1,000 ML IV PRN (12:34)
[2019-10-02] MEDS ORDERED: Zolpidem Tartrate 5 MG TAB PO PRN (12:34)
[2019-10-02] MEDS ORDERED: Promethazine HCl 25 MG/ML VIAL IM PRN ×2 (12:34→12:47)
[2019-10-02] MEDS ORDERED: HumaLOG 300 UNITS/3 ML VIAL SC PRN (12:34)
[2019-10-02] MEDS ORDERED: HYDROcodone/Acetaminophen 10/325 mg Tablet PO PRN (12:34)
[2019-10-02] MEDS ORDERED: Simethicone Chewable 80 MG TAB PO PRN (12:34)
[2019-10-02] MEDS ORDERED: diphenhydrAMINE 25 MG CAP PO PRN (12:34)
[2019-10-02] MEDS ORDERED: Bisacodyl 10 MG SUPP PR PRN (12:34)
[2019-10-02] MEDS ORDERED: Fentanyl 100 MCG/2 ML VIAL SLOW IVP PRN (12:34)
[2019-10-02] MEDS ORDERED: PACU-Morphine 4MG/ML VIAL SLOW IVP PRN (12:47)
[2019-10-02] MEDS ORDERED: Ondansetron HCl/PF 4 MG/2 ML Vial IVP PRN (12:47)
[2019-10-02] MEDS ORDERED: Promethazine HCl 25 MG/ML VIAL SLOW IVP PRN (12:47)
[2019-10-02] MEDS ORDERED: Meperidine HCl/PF 25 MG/ML VIAL SLOW IVP PRN (12:47)
[2019-10-02] MEDS ORDERED: Ondansetron PF 4 MG/2 ML Vial ONE (13:07)
[2019-10-02] MEDS: Ketorolac Tromethamine 30 MG/ML VIAL IVP SCH (17:12)
[2019-10-02] MEDS ORDERED: Rosuvastatin 5 MG TAB PO SCH (21:00)
[2019-10-02] MEDS ORDERED: metFORMIN 500 MG TAB PO SCH (21:00)
[2019-10-02] MEDS: HYDROcodone/Acetaminophen 10/325 mg Tablet PO PRN (21:23)
[2019-10-03] MEDS: Ibuprofen 800 MG TAB PO SCH ×2 (05:40→14:02)
[2019-10-03] MEDS: HYDROcodone/Acetaminophen 10/325 mg Tablet PO PRN ×2 (06:00→14:02)
[2019-10-03] MEDS ORDERED: Levothyroxine Sodium 75 MCG TAB PO SCH (06:00)
[2019-10-03 06:06] LABS: Hemoglobin 10.1 g/dL (12.0-16.0); Mean Corpuscular Hemoglobin 26.9 pg (27.0-31.0); Mean Corpuscular Volume 78.9 fL (78.0-98.0); Mean Platelet Volume 7.4 fL (7.4-10.4); Platelet Count 271 thou/uL (130-400); RBC Distribution Width 13.5 % (11.5-14.5); Red Blood Cell (RBC) Count 3.77 mill/uL (4.20-5.40); White Blood Cell (WBC) Count 15.9 thou/uL (4.8-10.8)
[2019-10-03] MEDS: Ketorolac Tromethamine 30 MG/ML VIAL IVP SCH (06:52)
[2019-10-03] MEDS ORDERED: Multivitamin W/ Minerals 1 TAB PO SCH (09:00)
[2019-10-03 11:52] VITALS: BP 94/53; TEMP 98.9
--- NOTE | 2019-10-04 14:42 | OP ---
DATE OF PROCEDURE: 10/02/2019 PREOPERATIVE DIAGNOSES: 1. Uterine fibroid. 2. Pelvic pain. 3. Irregular bleeding. POSTOPERATIVE DIAGNOSES: 1. Cervical fibroids. 2. Pelvic pain. 3. Irregular bleeding. PROCEDURES PERFORMED: 1. Vaginal myomectomy. 2. Diagnostic laparoscopy. ANESTHESIA: General endotracheal. [employer] SURGEON: Gauri Ruelas PA-C ESTIMATED BLOOD LOSS: 100 mL. IVF: 1500 mL of crystalloid. URINE OUTPUT: 800 mL of clear urine. PATHOLOGY: Cervical fibroid. COMPLICATIONS: None. DRAINS: Echavarria catheter. FINDINGS: A large 9 to 10 cm cervical fibroid off the left side of the cervix. The cervical os was deviated anteriorly into the right secondary to the fibroid, this was patent at the conclusion of the procedure. During the vaginal myomectomy, there was no entry into the peritoneal cavity or the retroperitoneum as documented by the laparoscopy during and following the procedure. The ureters were noted in the pelvic sidewall. These were not touched in terms of the dissection on the cervix. There was no bladder injury on back filling of the bladder. There were some adhesions of the omentum in the uterus to the anterior abdominal wall from the patient's prior and there was a small subserosal fibroid at the fundus that was less than 2 cm, that remained. There was a vaginal packing that was placed at the conclusion of the procedure. DESCRIPTION OF PROCEDURE: The patient was taken to the operating room, where general anesthesia was obtained without difficulty. The patient was prepped and draped in a sterile fashion in the dorsal lithotomy position. A Echavarria catheter was placed in the bladder and exam under anesthesia was performed and a large cervical fibroid was noted. The cervix was initially very difficult to locate; however, it was located very anteriorly and deviated over to the right. This was not visible on speculum exam, therefore manipulator could not be placed and manipulator was necessary in order to perform the laparoscopic myomectomy from the abdominal approach secondary to this posterior location and presence of structures in the pelvic sidewall as well as near the cervix and vagina, namely the ureters and bladder. Attention was then turned to the abdomen. A 0.5% Marcaine plain mixed with 1% lidocaine with epinephrine was infiltrated into the umbilicus and a 12-mm skin incision was made. The Veress needle was passed into the abdomen, noting an opening pressure of 6 mmHg. Pneumoperitoneum was obtained. The Veress needle was removed and a 12-mm trocar was passed into the abdomen and confirmed placement with the camera. Trendelenburg was obtained. A right lower quadrant 8-mm robotic trocar was placed under direct visualization after infiltrating with anesthetic. The grasper was used to manipulate the uterus and the posterior fibroid was visible; however, this was mainly located below the level of the uterosacral and the posterior cul-de-sac, where the injury would have occurred into the vagina at that point and pneumoperitoneum would be difficult to maintain as well as vaginal repair would have been necessary. Secondary to this inopportune location of the cervical fibroid and visibility of the cervical fibroid from the vaginal aspect, the decision was made to proceed with attempted vaginal myomectomy of the cervical fibroid. The pneumoperitoneum was then released and attention was turned back down to the vagina. The fibroid was visualized with retractors vaginally. The fibroid was then injected with dilute vasopressin, approximately 20 mL. The Bovie was used to make an incision over the cervical mucosa on cut, and once the fibroid was visible, it was grasped with a towel clamp and a Nidhi clamp was used to bluntly dissect the myometrial fibers off the fibroid. Some cautery was used during this process; however, this was kept to a minimum secondary to the retractors in the vagina and a very tight operating space. Most of the fibroid dissection was taken bluntly with a Nidhi. Once the fibroid visibly had been dissected off, it did go and come down into the vagina more. The retractors were then removed and a hand was placed into the vagina and the remainder of the fibers connecting the fibroid to the cervix were bluntly taken down. There was minimal bleeding during this process and the fibroid was able to be completely transected and sent off for pathology in one piece. It measured about 9 to 10 cm at its largest dimension. At that time, irrigation was performed vaginally and there was some bleeding, but not brisk bleeding from the fibroid bed. Visibility of this area was difficult as this was a deep in the cervix and vagina. A 2-0 Vicryl was used to try and plicate the fibroid bed in order to achieve hemostasis. This did help some. At that time, there was not brisk bleeding. Therefore, decision was made to close the cervix, so both the cervical edges were identified where the incision was made over the fibroid. These were grasped with ring forceps. A 2-0 Vicryl was then used to take a large bite around the incision in order to achieve hemostasis and this suture was run. This incision was closed in a running fashion. An Allis clamp following closure was then used to grasp the incision to bring it down further into the vagina. There was not a lot of oozing from the incision; however, additional [id number] sutures were placed on top of the cervix in order to plicate the bed, now that visualization was improved. There did not appear to be blood collecting within the incision. The incision was pressed in order to express any material, which was minimal. Once the bleeding had completely stopped on the cervical incision after placing several [id number] sutures on top of the cervical mucosa exteriorly. The scope was placed back into the abdomen and pneumoperitoneum was re-established. The pelvis was then examined. There was no injury into the peritoneum during this procedure. There was no bleeding present in the retroperitoneum and there was no tension on any structures. Following closure, the ureters were visible in the pelvic sidewall, vermiculating, and the urine was very clear at that time. The scope was removed and pneumoperitoneum was again released. The FloSeal was then placed over the cervical closure and pressure was held for 2 minutes. Hemostasis was noted to be excellent and irrigation was performed of the vagina. A moist Kerlix was placed in the vagina for vaginal packing and all instruments removed from the vagina. The fascia of the umbilical incision was closed with a 0 Vicryl in a [id number] fashion. The skin was closed with 4-0 Monocryl in subcuticular fashion. Dermabond was applied. The patient tolerated the procedure well. Sponge, lap, and needle counts were correct x2. The patient was taken to recovery room in stable condition. The patient received Ancef 2 g prior to the procedure. Job ID: [id number]
== END 2019-10-03 16:15 | disposition home or self-care (01) ==
LOC: SDC 07:08 → 3SE 15:54 → SDC 10-03 16:15
PROVIDERS: ATTEND Student in an Organized Health Care Education/Training Program
PROC: 0UB94ZZ Excision of Uterus, Percutaneous Endoscopic Approach (ICD-10-PCS; principal; 2019-10-03)
DX: D25.2 Subserosal leiomyoma of uterus (principal); E03.9 Hypothyroidism, unspecified; E11.9 Type 2 diabetes mellitus without complications; Z79.84 Long term (current) use of oral hypoglycemic drugs; Z79.899 Other long term (current) drug therapy; Z91.040 Latex allergy status
CPT/HCPCS: 36415; 36416; 80048; 85027; 86850; 86900; 86901; 88305; J0690; J1885; J2001; J2250; J2405; J2704; J3010; J3490; S0020; S0028

== ENCOUNTER 2019-10-09 14:56 | Outpatient (CLI) | payer BC ==
--- NOTE | 2019-10-09 15:56 | ULT ---
EXAM: Left upper extremity venous ultrasound HISTORY: Left upper extremity thrombophlebitis after IV placement in the basilic vein COMPARISON: None TECHNIQUE: Multiplanar grayscale and color Doppler images were obtained in a left upper extremity jose ous ultrasound. Spectral analysis of the Doppler waveforms were performed. FINDINGS: The internal jugular vein demonstrates normal compression and flow without evidence of thrombus. The subclavian vein demonstrates normal flow and augmentation without evidence of thrombus. The axillary and brachial veins demonstrate normal compression, flow, and augmentation without eviden ce of thrombus. The venous structures distal to the elbow are patent without thrombus. The cephalic vein is patent. There is superficial thrombus seen extending from the region of the IV i nto the lower portion of the upper arm. IMPRESSION: 1. No evidence of DVT. 2. Superficial thrombus within the basilic vein
== END 2019-10-09 14:57 | disposition home or self-care (01) ==
LOC: SCSULT 14:56
PROVIDERS: ATTEND Family Medicine
DX: I82.612 Acute embolism and thrombosis of superficial veins of left upper extremity (principal)

== ENCOUNTER 2021-08-05 09:49 | Outpatient (CLI) | payer OTHER | END 2021-08-05 09:50 | disposition home or self-care (01) | LOC: DTY/OP 09:49 | PROVIDERS: ATTEND Family Medicine | DX: Z71.3 Dietary counseling and surveillance (principal); E11.65 Type 2 diabetes mellitus with hyperglycemia | CPT/HCPCS: 97802 ==

== ENCOUNTER 2024-07-19 09:23 | Outpatient (CLI) | payer BC | END 2024-07-19 09:24 | disposition home or self-care (01) | LOC: SCSRAD 09:23 | PROVIDERS: ATTEND Family Medicine | DX: R05.9 Cough, unspecified (principal) | CPT/HCPCS: 71046 ==